=== PATIENT | female | born 1995 | race African-American/Black ===

== ENCOUNTER 2018-05-03 12:48 | Emergency (ER) | payer OTHER ==
[~2018-05-03] VITALS: Ht 167.6 cm; Wt 68.0 kg
[2018-05-03 13:23] LABS: URINE BILIRUBIN NEGATIVE (Negative); URINE BLOOD 3+ (Negative); URINE CLARITY CLEAR; URINE COLOR YELLOW; URINE GLUCOSE-RANDOM* NEGATIVE (Negative); URINE KETONES NEGATIVE (Negative); URINE LEUKOCYTES NEGATIVE (Negative); URINE NITRITE NEGATIVE (Negative); URINE PROTEIN (DIPSTICK) NEGATIVE (Negative); URINE SPECIFIC GRAVITY 1.025 (1.005-1.035); URINE UROBILINOGEN 0.2 E.U./dl (0.2-1.0)
[2018-05-03 13:32] LABS: SQUAMOUS 0-3 Few /LPF (0-3)
[2018-05-03 13:33] LABS: CASTS None Seen /LPF (None Seen); CRYSTALS None Seen /LPF (None Seen); MUCUS 0-3 Light strn/LPF (None Seen); URINE WBC 0-5 Rare /HPF (0-5)
[2018-05-03 13:42] LABS: ABSOLUTE NEUTROPHILS 6.9 thou/uL (1.4-8.2); BASOPHILS 0.5 % (0.0-2.0); HEMATOCRIT 38.2 % (37.0-47.0); HEMOGLOBIN 12.4 gm/dL (12.0-15.0); LYMPHOCYTES 25.6 % (24.0-44.0); MCH 26.9 pg (26.0-34.0); MCHC 32.4 g/dL (28.0-37.0); MCV 83.2 fL (80.0-100.0); MONOCYTES 6.9 % (1.0-8.0); PLATELET COUNT 217 thou/uL (150-400); RBC 4.59 mil/uL (4.20-5.00); WBC 10.6 thou/uL (4.0-11.0)
[2018-05-03 13:49] LABS: CREATININE 0.6 mg/dL (0.6-1.0); POTASSIUM 3.9 mmol/L (3.5-5.1)
[2018-05-03 14:14] VITALS: BP 121/78
== END 2018-05-03 14:00 | disposition home or self-care (01) ==
LOC: ER 12:48
PROVIDERS: Emergency Medicine
DX: N93.8 Other specified abnormal uterine and vaginal bleeding (principal)

== ENCOUNTER 2018-07-23 17:58 | Emergency (ER) | payer OTHER ==
[~2018-07-23] VITALS: Ht 165.1 cm; Wt 68.0 kg
[2018-07-23 18:44] LABS: URINE BILIRUBIN NEGATIVE (Negative); URINE BLOOD NEGATIVE (Negative); URINE CLARITY SL CLOUDY; URINE COLOR YELLOW; URINE GLUCOSE-RANDOM* NEGATIVE (Negative); URINE KETONES NEGATIVE (Negative); URINE LEUKOCYTES-REFLEX NEGATIVE (Negative); URINE NITRITE-REFLEX NEGATIVE (Negative); URINE PROTEIN (DIPSTICK) NEGATIVE (Negative); URINE UROBILINOGEN 0.2 E.U./dl (0.2-1.0)
[2018-07-23 20:01] VITALS: BP 146/96
== END 2018-07-23 20:01 | disposition home or self-care (01) ==
LOC: ER 17:58
PROVIDERS: Physician Assistant
DX: H11.32 Conjunctival hemorrhage, left eye (principal); V49.49XA Driver injured in collision with other motor vehicles in traffic accident, initial encounter; Y93.89 Activity, other specified; Y92.410 Unspecified street and highway as the place of occurrence of the external cause; Y99.8 Other external cause status